=== PATIENT | female | born 1990 | race Native Hawaiian/Other Pacific Islander ===

== ENCOUNTER 2016-10-16 | Emergency (ER) | payer MEDICAID | END 2016-10-16 18:01 | disposition home or self-care (01) ==

== ENCOUNTER 2016-10-27 07:45 | Emergency (ER) | payer MEDICAID ==
[2016-10-27] MEDS ORDERED: ONDANSETRON ODT 4 MG TABLET TL STA (10:36)
[2016-10-27] MEDS ORDERED: ONDANSETRON ODT 4 MG TABLET ONE (10:41)
== END 2016-10-27 12:16 | disposition home or self-care (01) ==
DX: F32.9 Major depressive disorder, single episode, unspecified (principal)
CPT/HCPCS: 36415; 80053; 80306; 80307; 80320; 80329; 81003; 81025; 83690; 85025; 99283; Q0162

== ENCOUNTER 2016-11-19 21:03 | Emergency (ER) | payer MEDICAID ==
[2016-11-19] MEDS ORDERED: IBUPROFEN 400 MG TABLET PO STA (21:36)
[2016-11-19] MEDS ORDERED: OXYMETAZOLINE NASAL SPRAY NAS STA (21:36)
[2016-11-19] MEDS ORDERED: OXYMETAZOLINE NASAL SPRAY NAS ONE (21:39)
[2016-11-19] MEDS ORDERED: IBUPROFEN 400 MG TABLET PO ONE (21:39)
== END 2016-11-19 22:01 | disposition home or self-care (01) ==
DX: J01.00 Acute maxillary sinusitis, unspecified (principal); E11.9 Type 2 diabetes mellitus without complications; G40.909 Epilepsy, unspecified, not intractable, without status epilepticus; F17.200 Nicotine dependence, unspecified, uncomplicated
CPT/HCPCS: 99283; A9270

== ENCOUNTER 2016-11-25 14:51 | Emergency (ER) | payer MEDICAID ==
[2016-11-25] MEDS ORDERED: BUPIVACAINE 0.5% PF 30 ML VIAL SUBQ STA (15:11)
[2016-11-25] MEDS ORDERED: BUPIVACAINE 0.5% PF 30 ML VIAL ONE (15:12)
== END 2016-11-25 16:04 | disposition home or self-care (01) ==
DX: S61.212A Laceration without foreign body of right middle finger without damage to nail, initial encounter (principal); W45.8XXA Other foreign body or object entering through skin, initial encounter; E11.9 Type 2 diabetes mellitus without complications; Z87.11 Personal history of peptic ulcer disease; G40.909 Epilepsy, unspecified, not intractable, without status epilepticus; M79.7 Fibromyalgia; F17.200 Nicotine dependence, unspecified, uncomplicated

== ENCOUNTER 2016-12-02 15:19 | Emergency (ER) | payer MEDICAID ==
[2016-12-02] MEDS ORDERED: HYDROcod/ACETAM 5/325 MG TABLET PO STA (15:34)
[2016-12-02] MEDS ORDERED: HYDROcod/ACETAM 5/325 MG TABLET ONE (15:44)
== END 2016-12-02 15:49 | disposition home or self-care (01) ==
DX: K04.7 Periapical abscess without sinus (principal); R03.0 Elevated blood-pressure reading, without diagnosis of hypertension; E11.9 Type 2 diabetes mellitus without complications; M79.7 Fibromyalgia; F17.200 Nicotine dependence, unspecified, uncomplicated
CPT/HCPCS: 99283; A9270

== ENCOUNTER 2017-01-01 14:30 | Emergency (ER) | payer MEDICAID | END 2017-01-01 16:37 | disposition home or self-care (01) | DX: H66.003 Acute suppurative otitis media without spontaneous rupture of ear drum, bilateral (principal) ==

== ENCOUNTER 2017-01-29 15:33 | Emergency (ER) | payer MEDICAID ==
[2017-01-29 15:42] VITALS: BP 143/90
--- NOTE | 2017-01-29 16:18 | ED Physician Documentation ---
PD HPI HEENT - Stated complaint Stated Complaint: TOOTH PX - Chief complaint Chief Complaint: Heent - History obtained from History obtained from: Patient - History of Present Illness Timing - onset: How many weeks ago (2) Timing - duration: Weeks (2) Timing - details: Gradual onset Pain level max: 6 Pain level now: 5 Location: Tooth (L lower tooth) Improves: Nothing Worsens: Temperatures Associated symptoms: No: Fever, Congestion, Rhinorrhea, Trismus, Unable to swallow, Swollen nodes, Facial swelling, Headache, Cough Similar symptoms before: Diagnosis (dental caries) Recently seen: Emergency Dept (for same) - Additional information Additional information: Patient is a 26-year-old female who has been seen here previously for dental caries. States unable to see her dentist for another week or 2. Since then tooth has now cracked. Complained of increasing pain. Review of Systems Constitutional: denies: Fever, Chills Respiratory: denies: Cough GI: denies: Nausea, Vomiting : denies: Now EGA Neurologic: denies: Headache PD PAST MEDICAL HISTORY - Past Medical History Cardiovascular: None Respiratory: Shortness of breath Neuro: Seizure disorder Endocrine/Autoimmune: None, Type 2 diabetes GI: Ulcers SALES PROJECT ADMINISTRATOR: None : None HEENT: None Psych: Depression, Anxiety, Panic attacks Musculoskeletal: Fibromyalgia Derm: None - Past Surgical History Past Surgical History: Yes General: Other /SALES PROJECT ADMINISTRATOR: section - Present Medications Home Medications: Ambulatory Orders Medication Instructions Recorded Confirmed Paroxetine HCl [Paxil] 100 mg PO DAILY 08/10/15 01/01/17 Levetiracetam [Keppra] 750 mg PO BID 07/13/16 01/01/17 LORazepam [Ativan] 0.5 mg PO Q6H PRN #7 tablet 10/16/16 01/01/17 Tramadol HCl 50 mg PO TID PRN #20 tablet 10/16/16 01/01/17 Meloxicam [Mobic] 7.5 mg PO BIDWM PRN #15 tablet 12/02/16 01/01/17 Azithromycin [Zithromax] 0 mg PO DAILY #6 tablet 01/01/17 Penicillin V Potassium 500 mg PO Q6HR #40 tablet 01/29/17 - Allergies Allergies/Adverse Reactions: Allergies Allergy/AdvReac Type Severity Reaction Status Date / Time shellfish derived Allergy Severe Rash Verified 01/01/17 14:56 iodine Allergy Intermediate Rash Verified 01/01/17 14:56 - Social History Does the pt smoke?: Yes Smoking Status: Former smoker Does the pt drink ETOH?: Yes Does the pt have substance abuse?: No - Immunizations Immunizations are current?: Yes Immunizations: TDAP current <10years - POLST Patient has POLST: No PD ED PE NORMAL - Vitals Vital signs reviewed: Yes - General General: Alert and oriented X 3, No acute distress - HEENT HEENT: Other (The patient has a cracked left lower molar. There is dental caries visible. There is no gingival swelling. No drainable abscess. No Richard's angina. ) - Neck Neck: Supple, no meningeal sign, No adenopathy - Cardiac Cardiac: RRR, No murmur - Respiratory Respiratory: No respiratory distress, Clear bilaterally - Derm Derm: Warm and dry - Neuro Neuro: Alert and oriented X 3 Results - Vitals Vitals: Vital Signs - 24 hr 01/29/17 15:40 Temperature 37 C Heart Rate 102 H Respiratory 18 Rate Blood Pressure 143/90 H O2 Saturation 98 Oxygen O2 Source Room air PD MEDICAL DECISION MAKING - ED course Complexity details: considered differential, d/w patient ED course: Patient is a 26-year-old female with a cracked left lower molar. Cavit was placed over the tooth and her pain greatly improved. Will place on antibiotics for home. She is well-appearing, nontoxic. Afebrile. Tolerating p.o. without difficulty. We will have her follow-up with her dentist for further evaluation and care. Patient counseled regarding signs and symptoms for which I believe and urgent re-evaluation would be necessary. Patient with good understanding of and agreement to plan and is comfortable going home at this time This document was made in part using voice recognition software. While efforts are made to proofread this document, sound alike and grammatical errors may occur. Departure - Departure Disposition: 01 Home, Self Care Clinical Impression: Dental caries Condition: Good Instructions: ED Cavity Dental, ED Tooth Pain Follow-Up: Ceci Turcios PA-C [Primary Care Provider] - Prescriptions: Penicillin V Potassium 500 mg PO Q6HR #40 tablet Comments: Take all antibiotics until gone. Return if you worsen. You need to follow-up with your dentist as soon as possible Discharge Date/Time: 01/29/17 16:20
== END 2017-01-29 16:20 | disposition home or self-care (01) ==
LOC: ED 15:33
DX: K02.9 Dental caries, unspecified (principal); E11.9 Type 2 diabetes mellitus without complications; G40.909 Epilepsy, unspecified, not intractable, without status epilepticus; Z87.891 Personal history of nicotine dependence
CPT/HCPCS: 99283

== ENCOUNTER 2017-02-11 11:12 | Emergency (ER) | payer MEDICAID ==
[2017-02-11] MEDS ORDERED: IBUPROFEN 800 MG TABLET PO STA (13:08)
--- NOTE | 2017-02-11 13:10 | ED Physician Documentation ---
History of Present Illness - Stated complaint Stated Complaint: HEADACHE/CHILLS/SZ - Chief complaint Chief Complaint: General - History obtained from History obtained from: Patient - History of Present Illness Timing: How many weeks ago (1) - Additonal information Additional information: The patient is a 26-year-old female with history of fibromyalgia and seizure disorder, who presents with earache of one week's duration. She also complains of fever and chills, myalgias, sore throat, and nonproductive cough. She reports nausea, without vomiting. Other family members have also been sick with upper respiratory symptoms. Review of Systems Constitutional: reports: Fever, Chills, Myalgias Ears: reports: Ear pain Nose: reports: Congestion Throat: reports: Sore throat Cardiac: denies: Chest pain / pressure Respiratory: reports: Cough. denies: Dyspnea GI: reports: Nausea. denies: Abdominal Pain, Vomiting : denies: Dysuria Skin: denies: Rash Musculoskeletal: denies: Back pain Neurologic: reports: Headache (mild) PD PAST MEDICAL HISTORY - Past Medical History Cardiovascular: None Respiratory: Shortness of breath Neuro: Seizure disorder Endocrine/Autoimmune: None GI: Ulcers LICENSED SALES ASSISTANT: None : None HEENT: None Psych: Depression, Anxiety, Panic attacks Musculoskeletal: Fibromyalgia Derm: None - Past Surgical History Past Surgical History: Yes General: Other /LICENSED SALES ASSISTANT: section - Present Medications Home Medications: Ambulatory Orders Medication Instructions Recorded Confirmed Paroxetine HCl [Paxil] 100 mg PO DAILY 08/10/15 02/11/17 Levetiracetam [Keppra] 750 mg PO BID 07/13/16 02/11/17 - Allergies Allergies/Adverse Reactions: Allergies Allergy/AdvReac Type Severity Reaction Status Date / Time shellfish derived Allergy Severe Rash Verified 02/11/17 11:19 iodine Allergy Intermediate Rash Verified 02/11/17 11:19 - Social History Does the pt smoke?: Yes Smoking Status: Former smoker Does the pt drink ETOH?: Yes Does the pt have substance abuse?: No - Immunizations Immunizations are current?: Yes Immunizations: TDAP current <10years - POLST Patient has POLST: No PD ED PE NORMAL - Vitals Vital signs reviewed: Yes (normal) - General General: Alert and oriented X 3, Well developed/nourished, Other (Appears somewhat restless, but otherwise in no acute distress.) - HEENT HEENT: Atraumatic, EOMI, Ears normal, Pharynx benign - Neck Neck: Supple, no meningeal sign, No adenopathy, No JVD - Cardiac Cardiac: RRR, No murmur - Respiratory Respiratory: No respiratory distress, Clear bilaterally - Abdomen Abdomen: Soft, Non tender - Back Back: No CVA TTP - Derm Derm: No rash - Extremities Extremities: No edema, No calf tenderness / cord - Neuro Neuro: Alert and oriented X 3, No motor deficit, Normal speech Results - Vitals Vitals: Oxygen O2 Source Room air PD MEDICAL DECISION MAKING - ED course Complexity details: considered differential, d/w patient ED course: The patient's presentation is most consistent with viral syndrome. Her presentation does not suggest meningitis, pharyngitis, or pneumonia. Her physical exam does not reveal evidence of otitis media. Treatment in the emergency department included administration of ibuprofen 800 mg orally. I discussed with her the expected course of illness, symptomatic treatment and outpatient follow-up, as well as potentially worrisome signs or symptoms that should prompt reevaluation in the emergency department. Departure - Departure Disposition: 01 Home, Self Care Clinical Impression: Viral syndrome Condition: Stable Instructions: ED Viral Syndrome Follow-Up: Ceci Turcios PA-C [Primary Care Provider] - Comments: Drink plenty of fluids. You can use Tylenol or ibuprofen if needed for fever or discomfort. Follow up with your primary physician within 2 weeks. Call to schedule an appointment. Return to the emergency department if you develop increasing headache, increasing shortness of breath, persistent vomiting, or otherwise worsening symptoms. Discharge Date/Time: 02/11/17 13:27
[2017-02-11 13:12] VITALS: BP 128/84
[2017-02-11] MEDS ORDERED: IBUPROFEN 800 MG TABLET PO ONE (13:19)
== END 2017-02-11 13:27 | disposition home or self-care (01) ==
LOC: ED 11:12
DX: B34.9 Viral infection, unspecified (principal); M79.7 Fibromyalgia; G40.909 Epilepsy, unspecified, not intractable, without status epilepticus; Z87.11 Personal history of peptic ulcer disease; Z87.891 Personal history of nicotine dependence
CPT/HCPCS: 99282; 99283; A9270

== ENCOUNTER 2017-04-23 22:36 | Outpatient (CLI) | payer MEDICAID | END 2017-04-23 22:37 | disposition EMS.NT | LOC: EMS 22:36 | PROVIDERS: ATTEND Surgery | DX: Z03.89 Encounter for observation for other suspected diseases and conditions ruled out (principal) ==

== ENCOUNTER 2017-04-24 09:14 | Emergency (ER) | payer MEDICAID ==
[2017-04-24 09:28] VITALS: BP 124/63
[2017-04-24] MEDS ORDERED: MAG HYDROX/AL HYDROX/SIMETH 30 ML UDC PO STA (10:16)
[2017-04-24] MEDS ORDERED: PHENobarb/HYOSCY/ATROPINE/SCOP 5 ML SYRINGE PO STA (10:16)
[2017-04-24] MEDS ORDERED: LIDOCAINE VISCOUS 2% 15 ML UDC MM STA (10:16)
--- NOTE | 2017-04-24 10:20 | ED Physician Documentation ---
PD HPI ABD PAIN - Stated complaint Stated Complaint: UPPER ABD PX - Chief complaint Chief Complaint: Abd Pain - History obtained from History obtained from: Patient - History of Present Illness Timing - details: Waxing and waning Location: Epigastric Worsened by: Other (Worse with drinking of carbonated beverages.) Associated symptoms: Vomiting (x1). No: Fever - Additional information Additional information: The patient is a 26-year-old female who presents with epigastric abdominal pain. The pain has been waxing and waning this morning. She reports associated nausea, with one episode of vomiting. She also reports associated shortness of breath. The pain is worse with carbonated beverages. She describes it as coming in waves. She has a history of similar symptoms in the past, but never this bad before. She reports history of peptic ulcer disease and kidney stones, but this does not feel like either of those. She denies dysuria. Her last menstrual period was 1 week ago. Review of Systems Constitutional: denies: Fever Nose: denies: Congestion Throat: denies: Sore throat Cardiac: denies: Chest pain / pressure Respiratory: denies: Dyspnea, Cough GI: reports: Abdominal Pain, Nausea, Vomiting (once). denies: Diarrhea : denies: Dysuria Skin: denies: Rash Musculoskeletal: denies: Back pain Neurologic: denies: Headache PD PAST MEDICAL HISTORY - Past Medical History Cardiovascular: None Respiratory: Shortness of breath Neuro: Seizure disorder Endocrine/Autoimmune: None GI: Ulcers REFERENCE LIBRARIAN: None : None HEENT: None Psych: Depression, Anxiety, Panic attacks Musculoskeletal: Fibromyalgia Derm: None - Past Surgical History Past Surgical History: Yes General: Other /REFERENCE LIBRARIAN: section - Present Medications Home Medications: Ambulatory Orders Medication Instructions Recorded Confirmed Paroxetine HCl [Paxil] 100 mg PO DAILY 08/10/15 02/11/17 Levetiracetam [Keppra] 750 mg PO BID 07/13/16 02/11/17 raNITIdine [Zantac] 150 mg PO BID #30 tablet 04/24/17 - Allergies Allergies/Adverse Reactions: Allergies Allergy/AdvReac Type Severity Reaction Status Date / Time shellfish derived Allergy Severe Rash Verified 02/11/17 11:19 iodine Allergy Intermediate Rash Verified 02/11/17 11:19 - Social History Does the pt smoke?: Yes Smoking Status: Former smoker Does the pt drink ETOH?: Yes Does the pt have substance abuse?: No - Immunizations Immunizations are current?: Yes Immunizations: TDAP current <10years - POLST Patient has POLST: No PD ED PE NORMAL - Vitals Vital signs reviewed: Yes (normal) - General General: Alert and oriented X 3, Well developed/nourished - HEENT HEENT: Atraumatic, Pharynx benign - Neck Neck: No adenopathy, No JVD - Cardiac Cardiac: RRR, No murmur - Respiratory Respiratory: No respiratory distress, Clear bilaterally - Abdomen Abdomen: Soft, Non distended, No organomegaly, Other (Epigastric tenderness to palpation, without rebound or guarding.) - Back Back: No CVA TTP - Derm Derm: No rash - Extremities Extremities: No edema, No calf tenderness / cord - Neuro Neuro: Alert and oriented X 3, No motor deficit, Normal speech Results - Vitals Vitals: Vital Signs - 24 hr 04/24/17 09:24 Temperature 36.6 C Heart Rate 101 H Respiratory 16 Rate Blood Pressure 124/63 O2 Saturation 98 Oxygen O2 Source Room air - Labs Labs: Laboratory Tests 04/24/17 04/24/17 10:00 10:00 Urine Color YELLOW Urine Clarity CLEAR Urine pH 6.0 Ur Specific Moran 1.025 1.025 Urine Protein TRACE Urine Glucose (UA) NEGATIVE Urine Ketones TRACE Urine Occult Blood NEGATIVE Urine Nitrite NEGATIVE Urine Bilirubin NEGATIVE Urine Urobilinogen 0.2 (NORMAL) Ur Leukocyte Esterase NEGATIVE Ur Microscopic Review NOT INDICATED Urine Culture Comments NOT INDICATED Urine HCG, Qual NEGATIVE PD MEDICAL DECISION MAKING - ED course Complexity details: re-evaluated patient, considered differential, d/w patient ED course: The patient's presentation is most consistent with gastroesophageal reflux. Her presentation does not suggest biliary colic or pancreatitis. Treatment in the emergency department included administration of GI cocktail, which completely relieved her symptoms. She is being discharged with a prescription for ranitidine. I discussed with her the diagnosis, potentially exacerbating factors, treatment and outpatient follow-up, as well as potentially worrisome signs or symptoms that should prompt reevaluation in the emergency department. Departure - Departure Disposition: 01 Home, Self Care Clinical Impression: Gastroesophageal reflux disease Qualifiers: Esophagitis presence: esophagitis presence not specified Qualified Code(s): K21.9 - Gastro-esophageal reflux disease without esophagitis Condition: Stable Instructions: ED GERD Prescriptions: raNITIdine [Zantac] 150 mg PO BID #30 tablet Comments: Minimize coffee, patsy, and alcohol. Take ranitidine twice daily as prescribed. If you develop recurrent symptoms try drinking liquid antacid, such as Maalox or Mylanta. Schedule follow-up appointment with a primary physician. Return to the emergency department if you develop increasing abdominal pain, persistent vomiting, or otherwise worsening symptoms. Discharge Date/Time: 04/24/17 12:12
[2017-04-24] MEDS ORDERED: PHENobarb/HYOSCY/ATROPINE/SCOP 5 ML SYRINGE PO ONE (10:26)
[2017-04-24] MEDS ORDERED: LIDOCAINE VISCOUS 2% 15 ML UDC MM ONE (10:26)
[2017-04-24] MEDS ORDERED: MAG HYDROX/AL HYDROX/SIMETH 30 ML UDC ONE (10:26)
[2017-04-24 10:34] LABS: BILIRUBIN,URINE NEGATIVE (NEGATIVE)
[2017-04-24 10:39] LABS: HCG UR QUAL NEGATIVE; UA CHARGE (STRIP ONLY) YES; UR CULTURE IF IND NOT INDICATED
== END 2017-04-24 12:12 | disposition home or self-care (01) ==
LOC: ED 09:14
DX: K21.9 Gastro-esophageal reflux disease without esophagitis (principal); G40.909 Epilepsy, unspecified, not intractable, without status epilepticus; Z87.11 Personal history of peptic ulcer disease; M79.7 Fibromyalgia; Z87.891 Personal history of nicotine dependence
CPT/HCPCS: 81003; 81025; 99283; 99284; A9270; 81001; 87086

== ENCOUNTER 2017-05-05 08:07 | Day surgery (SDC) | payer MEDICAID ==
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
[~2017-05-05 08:07] MED LIST: CELECOXIB 100 MG CAPSULE PO ONE
[2017-05-05 08:40] LABS: HCG UR QUAL NEGATIVE
[2017-05-05] MEDS ORDERED: LACTATED RINGERS 1,000 ML IV ONE ×2 (08:42→09:56)
[2017-05-05] MEDS ORDERED: SCOPOLAMINE PATCH TOP ONE (09:14)
[2017-05-05] MEDS ORDERED: LIDOCAINE 1%-EPI 1:100000 20 ML MDV SUBQ ONE ×2 (09:48)
[2017-05-05] MEDS ORDERED: LIDOCAINE-MPF 2% 5 ML VIAL IM ONE (10:20)
[2017-05-05] MEDS ORDERED: fentaNYL 100 MCG/2 ML VIAL IVP ONE (10:20)
[2017-05-05] MEDS ORDERED: PROPOFOL 200 MG/20 ML VIAL IVP ONE (10:20)
[2017-05-05] MEDS ORDERED: DEXAMETHASONE 4 MG/ML VIAL IVP ONE (10:20)
[2017-05-05] MEDS ORDERED: MIDAZOLAM 2 MG/2 ML VIAL IVP ONE (10:20)
[2017-05-05] MEDS ORDERED: ROCURONIUM 50 MG/5 ML VIAL IVP ONE (10:20)
[2017-05-05] MEDS ORDERED: SUCCINYLCHOLINE 200 MG/10 ML VIAL IVP ONE (10:20)
[2017-05-05] MEDS ORDERED: ONDANSETRON 4 MG/2 ML VIAL IVP ONE (10:20)
[2017-05-05] MEDS ORDERED: MIDAZOLAM 2 MG/2 ML VIAL ONE (10:41)
[2017-05-05] MEDS: fentaNYL 100 MCG/2 ML VIAL ONE ×2 (10:43→11:00)
[2017-05-05] MEDS ORDERED: HYDROmorphone 1 MG/ML SYRINGE ONE (11:21)
--- NOTE | 2017-05-05 11:46 | OPERATIVE REPORT ---
Operative Report - Other Other Information/Narrative: Date of Operation: 05/05/2017 Surgeon: Linda Dukes DO FACOG Smeller: None Anesthestist: Kai Mclaughlin CRNA Anesthesia: GET Pre-op Dx: 1. 26 yo 2. Desired permanent sterilization 3. Desired removal of Mirena IUD Post-op Dx: 1. 26 yo 2. Desired permanent sterilization 3. Desired removal of Mirena IUD 4. Left ovarian cyst Procedures: 1. Laparoscopic bilateral salpingectomy 2. Left ovarian cystotomy 3. Removal of left ovarian cyst wall 4. Removal of Mirena IUD Findings: 1. Normal uterus, right ovary and bilateral fallopian tubes 2. Large left ovarian cyst, approximately 6 x 6 cm 3. Normal appendix, liver edge Specimens: 1. Bilateral fallopian tubes 2. Portion of left ovarian cyst wall 3. Mirena IUD (not sent to pathology) Drains: None EBL: <20 mL Complications: None Dictation: [id number]
[2017-05-05] MEDS ORDERED: HYDROcod/ACETAM 5/325 MG TABLET ONE (12:21)
[2017-05-05 13:10] VITALS: BP 114/73
--- NOTE | 2017-05-05 14:16 | OPERATIVE REPORT ---
DATE OF SURGERY: 05/05/2017 00:00:00 PREOPERATIVE DIAGNOSES 1. A 26-year-ol, G4, P2-0-2-2 2. Desired permanent sterilization. 3. Desired removal of a Mirena intrauterine device. POSTOPERATIVE DIAGNOSES 1. A 26-year-ol, G4, P2-0-2-2 2. Desired permanent sterilization. 3. Desired removal of a Mirena intrauterine device. 4. Left ovarian cyst. NAME OF PROCEDURE 1. Laparoscopic bilateral salpingectomy. 2. Left ovarian cystotomy. 3. Removal of left ovarian cyst wall. 4. Removal of Mirena intrauterine device. SURGEON: Linda Dukes DO ANESTHESIA: General endotracheal tube. HUMIDIFIER ATTENDANT: None. WORK OVER RIG OPERATOR: Kai Mclaughlin CRNA FINDINGS 1. Normal uterus, right ovary and bilateral fallopian tubes. 2. A large left ovarian simple cyst measuring approximately 6 x 6 cm. 3. Normal appendix and liver edge. SPECIMENS 1. Bilateral fallopian tubes. 2. Portion of left ovarian cyst wall. 3. Mirena IUD, not sent to pathology. DRAINS: None. ESTIMATED BLOOD LOSS: 20 mL. COMPLICATIONS: None. BRIEF HISTORY: The patient is a patient at [facility] who has verbalized her desire to proceed to permanent sterilization. The patient is a poor pill taker and has not done well on systemic hormones in the past. She has had a Mirena IUD for contraception, but this has caused her significant cramping during her menses. She states she wants to have permanent sterilization in order to not worry about future contraception. I had a long discussion with the patient regarding the risks, benefits, alternatives, indications and expectations of a laparoscopic bilateral salpingectomy. Included in our discussion were the risks of hemorrhage, infection and an inadvertent laceration, cauterization or ligation of adjacent intestines, ureters and bladder. Furthermore, with this procedure, it is meant to be permanent and irreversible. She would not be able to have any children naturally and would need to resort to in vitro fertilization. The patient understands that this is not her only option for control, and that the control pills Ortho Evra, NuvaRing, Nexplanon and IUDs are at her disposal. The most common complication with this surgery is regret. I also gave the patient a scenario: if she were to meet someone with whom she would like to spend the rest of her life with and would like to have children with this individual; she stated that she was fine with not having more children. After all the patient's questions were answered to her satisfaction, she verbalized her desire to proceed with surgery. Consent forms have been signed. OPERATION IN DETAIL: The patient was identified, consented and taken to the operating room where IV access was already in place. A urine hCG performed this morning was negative. Sequential compression devices were placed on her lower extremities and turned on. The patient was then given satisfactory general endotracheal tube anesthesia as per Kai Mclaughlin CRNA. The patient was then prepped and draped in normal sterile fashion in the supine position. A timeout was performed, which correctly identified the patient, side of the procedure and the procedures themselves. The patient's left arm was tucked. Three 5 mm trocar port sites were identified in the subumbilical fold, left lower quadrant and right lower quadrant. They were all injected with 0.25% Marcaine with lidocaine. A total of 20 mL were used in all 3 port sites. The lower quadrant port sites were identified by first finding their respective anterior, superior, iliac spines and then moving 2 fingerbreadths superior and then medial to those locations. Entrance to the abdomen was made first with the subumbilical fold. This was done with the Visiport trocar. CO2 gas was then used to insufflate the abdomen, thus obtaining satisfactory pneumoperitoneum. The trocars were then placed under direct visualization of the camera, noting no trauma to the intraabdominal organs. Inspection of the pelvis revealed a normal uterus, left and right fallopian tubes and right ovary. There was a significant simple cyst on the left ovary measuring approximately 6 x 6 cm. Inspection of the rest of the abdomen revealed a normal appendix and liver edge. Attention was first turned towards the bilateral salpingectomies. The right fallopian tube was identified and followed out to its fimbriated end. It was then excised with the LigaSure. In a similar fashion, the left fallopian tube was identified and excised. There was some bleeding noted on the left pedicle of the fallopian tube since the LigaSure had tissue adherently attached to the active tips. I could not get the LigaSure off the pedicle without tearing the tissue unfortunately. The tissue on the tips of the LigaSure were then mechanically removed, and cautery from the LigaSure was then used to obtain hemostasis. The left ovarian cyst was then addressed. A small incision was made into the ovary. The ovary was then dissected off the cyst wall. Unfortunately, I had ruptured the ovarian cyst, and clear, straw-colored fluid egressed. With the ovarian cyst decompressed, I then bluntly peeled the cell wall off the ovary. A portion of the cyst was obtained and sent off since I had lost the other portion of the cyst wall somewhere in the abdomen. Inspection of the ovarian bed found it to be hemostatically stable. At this point in time, the surgery had been completed. All instruments were removed out of the abdomen, and CO2 gas was allowed to egress into the atmosphere, relieving the pneumoperitoneum. The 3 trocar sites were then reapproximated with 4-0 Monocryl in a subcuticular fashion. Dermabond was placed on top of all 3 incisions. Attention was then turned towards the removal of the Mirena IUD. The patient was then frog-legged, and a hand was placed in the vagina. After identifying the IUD string by palpation, a ring forceps was placed into the vagina, and the IUD was then gently removed. The patient tolerated the procedure well, taking her back to recovery room in stable condition. She will be discharged to home later today after postoperative criteria are met. All sponge, lap and needle counts were correct x2 as per nurse report. The patient has prescriptions for ibuprofen as well as Vicodin for postoperative pain control. She is expected to see me at [facility] in 2 weeks for routine postoperative incision check. The patient is to call should she have any worsening fevers, chills, abdominal pain or vaginal bleeding. JOB #: [id number] EXT JOB #:[id number] JUNE
== END 2017-05-05 08:08 | disposition home or self-care (01) ==
LOC: SDS 08:07
PROVIDERS: ATTEND Obstetrics & Gynecology
PROC: 0UPD7HZ Removal of Contraceptive Device from Uterus and Cervix, Via Natural or Artificial Opening (ICD-10-PCS; 2017-05-05)
PROC: 0UB74ZZ Excision of Bilateral Fallopian Tubes, Percutaneous Endoscopic Approach (ICD-10-PCS; principal; 2017-05-05 09:15)
PROC: 0UB14ZZ Excision of Left Ovary, Percutaneous Endoscopic Approach (ICD-10-PCS; 2017-05-05 09:15)
DX: Z30.2 Encounter for sterilization (principal); Z30.432 Encounter for removal of intrauterine contraceptive device; Z87.891 Personal history of nicotine dependence
CPT/HCPCS: 58301; 58661; 58662; 81025; A9270; J1170; J3490; J7120

== ENCOUNTER 2017-05-20 19:55 | Emergency (ER) | payer MEDICAID ==
[2017-05-20] MEDS ORDERED: DEXAMETHASONE 10 MG/ML VIAL PO STA (20:37)
[2017-05-20] MEDS ORDERED: DEXAMETHASONE 10 MG/ML VIAL ONE (20:48)
[2017-05-20] MEDS ORDERED: CHERRY SYRUP 10 ML UDC PO ONE (20:48)
--- NOTE | 2017-05-20 21:02 | ED Physician Documentation ---
History of Present Illness - Stated complaint Stated Complaint: HIVES,POST SURGICAL - Chief complaint Chief Complaint: Allergic Rx - Additonal information Additional information: hx from pt 26 female 2 weeks s/p COMMERCIAL CENSUS TAKER surgery to ER 2/2 hives int since surgery extremely itchy no oral swelling or SOA pt cannot identify any inciting factor except started post op - no new meds food lotions etc, no residual tape dressings sutures that would cause sx Review of Systems Constitutional: denies: Fever, Chills Cardiac: denies: Chest pain / pressure Respiratory: denies: Dyspnea : denies: Now EGA (neg HCG pre-op) Skin: reports: Rash PD PAST MEDICAL HISTORY - Past Medical History Cardiovascular: None Respiratory: Shortness of breath Neuro: Seizure disorder Endocrine/Autoimmune: None GI: Ulcers COMMERCIAL CENSUS TAKER: None : None HEENT: None Psych: Depression, Anxiety, Panic attacks Musculoskeletal: Fibromyalgia Derm: None - Past Surgical History Past Surgical History: Yes General: Other /COMMERCIAL CENSUS TAKER: section - Present Medications Home Medications: Ambulatory Orders Medication Instructions Recorded Confirmed Levetiracetam [Levetiracetam] 750 mg ORAL DAILY 05/20/17 05/20/17 Loratadine [Claritin] 10 mg PO DAILY PRN #14 capsule 05/20/17 Lorazepam [Lorazepam] 0.5 mg ORAL .FREQ 05/20/17 05/20/17 Paroxetine HCl [Paroxetine HCl] 40 mg ORAL DAILY 05/20/17 05/20/17 predniSONE [Deltasone] 20 mg PO [id number] #21 tab 05/20/17 - Allergies Allergies/Adverse Reactions: Allergies Allergy/AdvReac Type Severity Reaction Status Date / Time shellfish derived Allergy Severe Rash Verified 05/20/17 20:01 iodine Allergy Intermediate Rash Verified 05/20/17 20:01 - Social History Does the pt smoke?: Yes Smoking Status: Former smoker Does the pt drink ETOH?: Yes Does the pt have substance abuse?: No - Immunizations Immunizations are current?: Yes Immunizations: TDAP current <10years - POLST Patient has POLST: No PD ED PE NORMAL - Vitals Vital signs reviewed: Yes - HEENT HEENT: Other (no oral swelling) - Cardiac Cardiac: RRR - Respiratory Respiratory: No respiratory distress, Clear bilaterally, Other (no wheeze stridor) - Abdomen Abdomen: Soft, Non tender - Derm Derm: Other (hives present earlier have mostly faded now but some faint suggestion of urticaria remains, wounds healing well, no petecchiae prupura vesicles etc) Results - Vitals Vitals: Vital Signs - 24 hr 05/20/17 19:57 Temperature 36.3 C L Heart Rate 99 Respiratory 18 Rate Blood Pressure 133/88 H O2 Saturation 99 Oxygen O2 Source Room air PD MEDICAL DECISION MAKING - ED course ED course: etiology unclear but pt with urticaria despite benadryl will add steroids Departure - Departure Disposition: Home, Self Care Clinical Impression: Acute urticaria Condition: Good Instructions: ED Allergic Reaction General Other Follow-Up: Ceci Turcios PA-C [Primary Care Provider] - (for a recheck if not better Wednesday ) Prescriptions: Loratadine [Claritin] 10 mg PO DAILY PRN #14 capsule PRN Reason: hives predniSONE [Deltasone] 20 mg PO [id number] #21 tab Comments: Adding the steroids should significantly decrease the itching and hives Try changing benadryl to claritin which is less sedating If the symptoms persist, please see you PMD to get a referral for allergy testing to identify what is causing the reaction And please have your PMD recheck your blood pressure - it was high today Forms: Activity restrictions
[2017-05-20 21:17] VITALS: BP 133/78
== END 2017-05-20 21:17 | disposition home or self-care (01) ==
LOC: ED 19:55
DX: L50.8 Other urticaria (principal); T81.89XA Other complications of procedures, not elsewhere classified, initial encounter; M79.7 Fibromyalgia; Z87.11 Personal history of peptic ulcer disease; Z87.891 Personal history of nicotine dependence
CPT/HCPCS: 99283; A9270

== ENCOUNTER 2017-06-13 23:05 | Outpatient (CLI) | payer MEDICAID | END 2017-06-13 23:06 | disposition critical access hospital (66) | LOC: EMS 23:05 | PROVIDERS: ATTEND Surgery | DX: S51.812A Laceration without foreign body of left forearm, initial encounter (principal); X78.0XXA Intentional self-harm by sharp glass, initial encounter; Y92.009 Unspecified place in unspecified non-institutional (private) residence as the place of occurrence of the external cause | CPT/HCPCS: A0425; A0429 ==

== ENCOUNTER 2017-06-13 23:19 | Emergency (ER) | payer MEDICAID ==
[2017-06-13 23:26] VITALS: BP 119/81
[2017-06-14 00:06] LABS: BASOPHILS # (AUTO) 0.1 10^3/uL (0.0-0.1); BASOPHILS % (AUTO) 1.3 %; EOSINOPHILS # (AUTO) 0.2 10^3/uL (0.0-0.7); MONOCYTES # (AUTO) 0.4 10^3/uL (0.0-1.0)
[2017-06-14 00:09] LABS: HCT - HEMATOCRIT 41.6 % (37.0-47.0); HGB - HEMOGLOBIN 13.9 g/dL (12.0-16.0); LYMPHOCYTES # (AUTO) 3.3 10^3/uL (1.5-3.5); MEAN CORPUSCULAR HEMOGLOBIN 31.3 pg (27.0-31.0); MEAN CORPUSCULAR HGB CONC 33.4 g/dL (32.0-36.0); MEAN CORPUSCULAR VOLUME 93.6 fL (81.0-99.0); MONOCYTES % (AUTO) 5.8 %; NEUTROPHILS # (AUTO) 3.6 10^3/uL (1.5-6.6); NEUTROPHILS % (AUTO) 46.9 %; RED BLOOD COUNT 4.44 10^6/uL (4.20-5.40); RED CELL DISTRIBUTION WIDTH 11.7 % (12.0-15.0); UNCORRECTED WHITE BLOOD COUNT 7.6 x10^3/uL; WHITE BLOOD COUNT 7.6 x10^3/uL (4.8-10.8)
[2017-06-14 00:21] LABS: ALBUMIN/GLOBULIN RATIO 1.5 (1.0-2.2); BILIRUBIN,TOTAL 0.5 mg/dL (0.2-1.0); BUN - BLOOD UREA NITROGEN 9 mg/dL (6-20); CALCIUM 9.1 mg/dL (8.5-10.3); CARBON DIOXIDE - CO2 27 mmol/L (21-32); CHLORIDE 104 mmol/L (101-111); CREATININE 0.7 mg/dL (0.4-1.0); GFR - MDRD 100 (>89); GLUCOSE 95 mg/dL (70-100); LIPASE 41 U/L (22-51); POTASSIUM 4.2 mmol/L (3.5-5.0); SALICYLATE < 6.0 mg/dL; SODIUM 139 mmol/L (135-145); TOTAL PROTEIN 8.3 g/dL (6.7-8.2)
[2017-06-14 00:24] LABS: ACETAMINOPHEN < 10 ug/mL (10-30)
[2017-06-14 00:32] LABS: BILIRUBIN,URINE NEGATIVE (NEGATIVE)
[2017-06-14 00:43] LABS: HCG UR QUAL NEGATIVE; UA CHARGE (STRIP ONLY) YES; UR CULTURE IF IND NOT INDICATED
== END 2017-06-14 01:20 | disposition left against medical advice (07) ==
LOC: EDUNIT# → ED 23:19 → SUPCPDRO 23:19 → ED 06-14 01:20
DX: F41.9 Anxiety disorder, unspecified (principal); S61.512A Laceration without foreign body of left wrist, initial encounter; X83.8XXA Intentional self-harm by other specified means, initial encounter; Y92.009 Unspecified place in unspecified non-institutional (private) residence as the place of occurrence of the external cause; Z53.21 Procedure and treatment not carried out due to patient leaving prior to being seen by health care provider
CPT/HCPCS: 36415; 80053; 80306; 80307; 80320; 80329; 81001; 81003; 81025; 83690; 85025; 87086; 99283

== ENCOUNTER 2017-07-16 13:11 | Emergency (ER) | payer MEDICAID ==
[2017-07-16 13:44] VITALS: BP 139/96
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
== END 2017-07-16 14:05 | disposition home or self-care (01) ==
LOC: ED 13:11
DX: Z76.0 Encounter for issue of repeat prescription (principal); G40.909 Epilepsy, unspecified, not intractable, without status epilepticus; F32.9 Major depressive disorder, single episode, unspecified; M79.7 Fibromyalgia; Z87.891 Personal history of nicotine dependence
CPT/HCPCS: 99283